=== PATIENT | female | born 1980 | race Two or more races ===

== ENCOUNTER 2018-07-27 15:00 | Emergency (ER) | payer SELFPAY ==
[~2018-07-27] VITALS: Ht 152.4 cm; Wt 90.7 kg
[2018-07-27] MEDS ORDERED: IV NORMAL SALINE 1000ML BAG 1,000 ML IV ONE (16:15)
[2018-07-27 16:33] LABS: BASO # 0.1 x10^3/uL (0.0-0.2); BASO % 1 % (0-3); EOS # 0.2 x10^3/uL (0.0-0.7); EOS % 1 % (0-3); HEMATOCRIT 42.9 % (36.0-47.0); HEMOGLOBIN 15.5 g/dL (12.0-15.5); LYMPH # 2.6 x10^3/uL (1.0-4.8); LYMPH % 20 % (24-48); MEAN CORPUSCULAR HEMOGLOBIN 32 pg (25-35); MEAN CORPUSCULAR HGB CONC 36 g/dL (31-37); MEAN CORPUSCULAR VOLUME 88 fL (79-100); MONO % 8 % (0-9); NEUT # 9.1 x10^3uL (1.8-7.7); NEUT % 70 % (31-73); PLATELET COUNT 347 x10^3/uL (140-400); RED BLOOD COUNT 4.87 x10^6/uL (3.50-5.40); RED CELL DISTRIBUTION WIDTH 13.3 % (11.5-14.5)
[2018-07-27 16:43] LABS: CALCIUM 9.7 mg/dL (8.5-10.1); CREATININE 0.7 mg/dL (0.6-1.0); GFR 92.7; POTASSIUM 3.6 mmol/L (3.5-5.1)
[2018-07-27] MEDS ORDERED: fentaNYL PF VIAL 100 MCG/2 ML VIAL IV ONE (16:45)
[2018-07-27] MEDS ORDERED: FAMOTIDINE 20 MG/2 ML VIAL IVP ONE (16:45)
[2018-07-27] MEDS ORDERED: IOHEXOL 300 MG/ML 100ML VIAL. IV ONE (16:45)
[2018-07-27] MEDS ORDERED: ONDANSETRON PF 4 MG/2 ML VIAL. IV ONE (16:45)
[2018-07-27] MEDS ORDERED: LIDO:MAALOX 1:1 20 ML SINGLE DOSE. SWSW ONE (16:45)
[2018-07-27] MEDS ORDERED: CONTRAST GIVEN. MC PRN (16:45)
[2018-07-27 16:49] LABS: ALBUMIN 3.9 g/dL (3.4-5.0); ALBUMIN/GLOBULIN RATIO 0.8 (1.0-1.7); TOTAL BILIRUBIN 0.4 mg/dL (0.2-1.0); TOTAL PROTEIN 8.8 g/dL (6.4-8.2)
[2018-07-27 17:14] LABS: BILIRUBIN,URINE NEGATIVE (NEG); CLARITY,URINE CLEAR; COLOR,URINE YELLOW; NITRITE,URINE NEGATIVE (NEG); PROTEIN,URINE NEGATIVE (NEG-TRACE); UROBILINOGEN,URINE 0.2 mg/dL (0.2 mg/dL)
[2018-07-27 17:24] LABS: BACTERIA,URINE 0 /HPF (0-FEW); SQUAMOUS EPITHELIAL CELL,UR OCC /LPF
[2018-07-27 17:30] LABS: AMPHETAMINE/METHAMPHETAMINE NEG (NEG); BARBITURATES NEG (NEG); BENZODIAZEPINES NEG (NEG); CANNABINOIDS NEG (NEG); COCAINE NEG (NEG); METHADONE NEG (NEG); OPIATES NEG (NEG); PHENCYCLIDINE NEG (NEG)
--- NOTE | 2018-07-27 18:45 | RAD ---
PQRS Compliance statement: One or more of the following individualized dose reduction techniques were utilized for this examination: 1. Automated exposure control. 2. Adjustment of the mA and/or kV according to patient size. 3. Use of iterative reconstruction technique. Indication:bilateral abd pain, with nausea and vomiting
Omni 300 75ml, no priors TECHNIQUE: CT abdomen and pelvis with IV contrast with multiplanar reformats. COMPARISON: None FINDINGS: Motion artifact is seen in the abdomen limiting optimal evaluation. Heart is normal in size. No pericardial or pleural effusion. Clear lung bases. Diffuse hepatic steatosis. No focal hepatic lesion. Gallstones noted. Mild gallbladder wall thickening seen. No pericholecystic fluid. Spleen, pancreas, adrenals and kidneys are within normal limits. No enlarged retroperitoneal or pelvic adenopathy. No free pelvic fluid or ascites. No bowel obstruction. Normal appendix. Anteverted uterus. Urinary bladder demonstrates circumferential wall thickening without radiopaque stones. No pneumoperitoneum. No suspicious bony lesion. 2.8 x 3.2 cm low attenuating lesion is seen in the left ovary most likely a simple cyst. IMPRESSION: Exam slightly limited due to motion artifact in the abdomen. 1. Cholelithiasis with mild gallbladder wall thickening. Clinically correlate with signs and symptoms of acute cholecystitis. 2. No nephrolithiasis or hydronephrosis. 3. Normal appendix. Mild hepatic steatosis. Electronically signed by: Jeff Roblero DO (07/27/2018 6:40 PM) [facility]
[2018-07-27] MEDS ORDERED: HYDR-3164 PO (19:32)
[2018-07-27] MEDS ORDERED: ONDA4TAB7 PO (19:32)
[2018-07-27] MEDS ORDERED: CIPR500T94 PO (19:32)
--- NOTE | 2018-07-27 19:33 | PHYS DOC ---
Past Medical History Past Medical History: No Pertinent History Past Surgical History: No Surgical History Alcohol Use: None Drug Use: None Adult General Chief Complaint Chief Complaint: ABDOMINAL PAIN HPI HPI Patient is a 38 year old Georgian-speaking female with no significant medical history who presents today complaining of 10 out of 10 bilateral flank pain and generalized abdominal pain with nausea vomiting for 2 days. Patient denies any fever. Denies any diarrhea. Denies any urgency frequency dysuria. She states she 's had similar symptoms a while back and the symptoms resolved on their own. She states she was seen at [facility] and they sent her to the ED to be evaluated. Interpretation provided by who is fluent in both Uzbek and Georgian. Review of Systems Review of Systems Constitutional: Denies fever or chills [] Eyes: Denies change in visual acuity, redness, or eye pain [] HENT: Denies nasal congestion or sore throat [] Respiratory: Denies cough or shortness of breath [] Cardiovascular: No additional information not addressed in HPI [] GI: Reports generalized abdominal pain, nausea vomiting, denies bloody stools or diarrhea [] : Reports bilateral flank pain. Denies dysuria or hematuria [] Musculoskeletal: Denies back pain or joint pain [] Integument: Denies rash or skin lesions [] Neurologic: Denies headache, focal weakness or sensory changes [] All other systems were reviewed and found to be within normal limits, except as documented in this note. Current Medications Current Medications Current Medications Medications (Trade) Dose Ordered Sig/Brian Start Time Stop Time Status Last Admin Dose Admin Famotidine (Pepcid Vial) 20 mg 1X ONCE 07/27/18 16:45 07/27/18 16:46 DC 07/27/18 16:52 20 MG Fentanyl Citrate (Fentanyl 2ml Vial) 50 mcg 1X ONCE 07/27/18 16:45 07/27/18 16:46 DC 07/27/18 16:52 50 MCG Info (CONTRAST GIVEN -- Rx MONITORING) 1 each PRN DAILY PRN 07/27/18 16:45 07/29/18 16:44 Iohexol (Omnipaque 300 Mg/ml) 75 ml 1X ONCE 07/27/18 16:45 07/27/18 16:46 DC Multi-Ingredient Mouthwash/Gargle (Gi Cocktail) 20 ml 1X ONCE 07/27/18 16:45 07/27/18 16:46 DC 07/27/18 16:52 20 ML Ondansetron HCl (Zofran) 4 mg 1X ONCE 07/27/18 16:45 07/27/18 16:46 DC 07/27/18 16:52 4 MG Sodium Chloride 1,000 ml @ 1,000 mls/hr 1X ONCE 07/27/18 16:15 07/27/18 17:14 DC 07/27/18 16:15 1,000 MLS/HR Allergies Allergies Allergies Coded Allergies Type Severity Reaction Last Updated Verified No Known Drug Allergies 07/27/18 No Physical Exam Physical Exam Constitutional: Well developed, well nourished, no acute distress, non-toxic appearance. [] HENT: Normocephalic, atraumatic, bilateral external ears normal, oropharynx moist, no oral exudates, nose normal. [] Eyes: PERRLA, EOMI, conjunctiva normal, no discharge. [] Neck: Normal range of motion, no tenderness, supple, no stridor. [] Cardiovascular:Heart rate regular rhythm, no murmur [] Lungs & Thorax: Bilateral breath sounds clear to auscultation [] Abdomen: Rounded abdomen. Bowel sounds normal, soft, diffuse tenderness throughout the abdomen, no point tenderness to the right upper quadrant or right lower quadrant, negative psoas sign, negative obturator sign, negative Elena sign, negative Rovsing sign, no masses, no pulsatile masses. [] Skin: Warm, dry, no erythema, no rash. [] Back: No tenderness, no CVA tenderness. [] Extremities: No tenderness, no cyanosis, no clubbing, ROM intact, no edema. [] Neurologic: Alert and oriented X 3, normal motor function, normal sensory function, no focal deficits noted. [] Psychologic: Affect normal, judgement normal, mood normal. [] Current Patient Data Vital Signs Vital Signs Date Time Temp Pulse Resp B/P (MAP) Pulse Ox O2 Delivery O2 Flow Rate FiO2 07/27/18 16:52 18 99 Room Air 07/27/18 16:10 97.6 88 175/93 (120) 97.6 Lab Values Laboratory Tests Test 07/27/18 16:11 07/27/18 16:20 07/27/18 16:59 POC Urine HCG, Qualitative Hcg negative (Negative) White Blood Count 13.0 x10^3/uL (4.0-11.0) H Red Blood Count 4.87 x10^6/uL (3.50-5.40) Hemoglobin 15.5 g/dL (12.0-15.5) Hematocrit 42.9 % (36.0-47.0) Mean Corpuscular Volume 88 fL (79-100) Mean Corpuscular Hemoglobin 32 pg (25-35) Mean Corpuscular Hemoglobin Concent 36 g/dL (31-37) Red Cell Distribution Width 13.3 % (11.5-14.5) Platelet Count 347 x10^3/uL (140-400) Neutrophils (%) (Auto) 70 % (31-73) Lymphocytes (%) (Auto) 20 % (24-48) L Monocytes (%) (Auto) 8 % (0-9) Eosinophils (%) (Auto) 1 % (0-3) Basophils (%) (Auto) 1 % (0-3) Neutrophils # (Auto) 9.1 x10^3uL (1.8-7.7) H Lymphocytes # (Auto) 2.6 x10^3/uL (1.0-4.8) Monocytes # (Auto) 1.0 x10^3/uL (0.0-1.1) Eosinophils # (Auto) 0.2 x10^3/uL (0.0-0.7) Basophils # (Auto) 0.1 x10^3/uL (0.0-0.2) Sodium Level 139 mmol/L (136-145) Potassium Level 3.6 mmol/L (3.5-5.1) Chloride Level 99 mmol/L (98-107) Carbon Dioxide Level 28 mmol/L (21-32) Anion Gap 12 (6-14) Blood Urea Nitrogen 6 mg/dL (7-20) L Creatinine 0.7 mg/dL (0.6-1.0) Estimated GFR (Cockcroft-Gault) 92.7 BUN/Creatinine Ratio 9 (6-20) Glucose Level 115 mg/dL (70-99) H Calcium Level 9.7 mg/dL (8.5-10.1) Total Bilirubin 0.4 mg/dL (0.2-1.0) Aspartate Amino Transferase (AST) 27 U/L (15-37) Alanine Aminotransferase (ALT) 47 U/L (14-59) Alkaline Phosphatase 122 U/L (46-116) H Total Protein 8.8 g/dL (6.4-8.2) H Albumin 3.9 g/dL (3.4-5.0) Albumin/Globulin Ratio 0.8 (1.0-1.7) L Lipase 98 U/L (73-393) Ethyl Alcohol Level < 10 mg/dL (0-10) Urine Color Yellow Urine Clarity Clear Urine pH 7.0 Urine Specific [place] <=1.005 Urine Protein Negative mg/dL (NEG-TRACE) Urine Glucose (UA) Negative mg/dL (NEG) Urine Ketones (Stick) Negative mg/dL (NEG) Urine Blood Moderate (NEG) Urine Nitrite Negative (NEG) Urine Bilirubin Negative (NEG) Urine Urobilinogen Dipstick 0.2 mg/dL (0.2 mg/dL) Urine Leukocyte Esterase Negative (NEG) Urine RBC 3-5 /HPF (0-2) Urine WBC 1-4 /HPF (0-4) Urine Squamous Epithelial Cells Occ /LPF Urine Bacteria 0 /HPF (0-FEW) Urine Opiates Screen Neg (NEG) Urine Methadone Screen Neg (NEG) Urine Barbiturates Neg (NEG) Urine Phencyclidine Screen Neg (NEG) Urine Amphetamine/Methamphetamine Neg (NEG) Urine Benzodiazepines Screen Neg (NEG) Urine Cocaine Screen Neg (NEG) Urine Cannabinoids Screen Neg (NEG) Urine Ethyl Alcohol Neg (NEG) Laboratory Tests 07/27/18 16:20 Laboratory Tests 07/27/18 16:20 EKG EKG [] Radiology/Procedures Radiology/Procedures []PROCEDURE: CT ABD PELV W/ IV CONTRST ONLY PQRS Compliance statement: One or more of the following individualized dose reduction techniques were utilized for this examination: 1. Automated exposure control. 2. Adjustment of the mA and/or kV according to patient size. 3. Use of iterative reconstruction technique. Indication:bilateral abd pain, with nausea and vomiting
Omni 300 75ml, no priors TECHNIQUE: CT abdomen and pelvis with IV contrast with multiplanar reformats. COMPARISON: None FINDINGS: Motion artifact is seen in the abdomen limiting optimal evaluation. Heart is normal in size. No pericardial or pleural effusion. Clear lung bases. Diffuse hepatic steatosis. No focal hepatic lesion. Gallstones noted. Mild gallbladder wall thickening seen. No pericholecystic fluid. Spleen, pancreas, adrenals and kidneys are within normal limits. No enlarged retroperitoneal or pelvic adenopathy. No free pelvic fluid or ascites. No bowel obstruction. Normal appendix. Anteverted uterus. Urinary bladder demonstrates circumferential wall thickening without radiopaque stones. No pneumoperitoneum. No suspicious bony lesion. 2.8 x 3.2 cm low attenuating lesion is seen in the left ovary most likely a simple cyst. IMPRESSION: Exam slightly limited due to motion artifact in the abdomen. 1. Cholelithiasis with mild gallbladder wall thickening. Clinically correlate with signs and symptoms of acute cholecystitis. 2. No nephrolithiasis or hydronephrosis. 3. Normal appendix. Mild hepatic steatosis. Electronically signed by: Jeff Roblero DO (07/27/2018 6:40 PM) [facility] DICTATED and SIGNED BY: EJFF ROBLERO DO DATE: 07/27/18 183 Course & Med Decision Making Course & Med Decision Making Pertinent Labs and Imaging studies reviewed. (See chart for details) This is a 38-year-old female patient presented to the ED today with bilateral flank pain, generalized abdominal pain, nausea vomiting for 2 days. Negative urine hCG, urine analysis is negative for infection, CBC with a WBC of 13.0, CMP with normal AST, normal AST, and care 122. CT of the abdomen and pelvic-Cholelithiasis with mild gallbladder wall thickening. Clinically correlate with signs and symptoms of acute cholecystitis. No nephrolithiasis or hydronephrosis. Normal appendix. Mild hepatic steatosis. Patient was offered admission to the hospital to be seen by general surgeon. She requested follow-up as an outpatient. She states her pain is currently resolved. She was given the general surgeons contact number, she'll follow-up on Monday. Discharge her with hydrocodone and Cipro. Follow-up with the general surgeon on Monday. Instructed to return to the ED at any point symptoms worsen. Dragon Disclaimer Dragon Disclaimer This electronic medical record was generated, in whole or in part, using a voice recognition dictation system. Departure Departure Impression: Primary Impression: Cholelithiasis Disposition: HOME, SELF-CARE Condition: STABLE Referrals: NO PCP (PCP) SRAVAN MCCARTHY MD call his office on Monday and follow up Patient Instructions: Cholelithiasis, [id number] Additional Instructions: You were evaluated in the emergency room, you have chololithiasis. We recommended admission, you decided you will follow-up with the general surgeon on Monday. We provided do the contact number, ensure you follow-up on Monday. Come back to the ED at any point symptoms worsen. Scripts Ciprofloxacin Hcl (CIPRO) 500 Mg Tablet 1 TAB PO BID, #14 TAB Prov: BRAD CODY [employer] SPECIALIST 07/27/18 Ondansetron Hcl (ZOFRAN) 4 Mg Tablet 1 TAB PO Q6HRS, #20 TAB Prov: BRAD CODY [employer] SPECIALIST 07/27/18 Hydrocodone/Apap 5-325 (NORCO 5-325 TABLET) 1 Each Tablet 1 TAB PO Q6HRS, #20 TAB Prov: BRAD CODY [employer] SPECIALIST 07/27/18 Problem Qualifiers Primary Impression: Cholelithiasis Cholelithiasis location: gallbladder Cholecystitis presence: without cholecystitis Biliary obstruction: without biliary obstruction Qualified Codes: K80.20 - Calculus of gallbladder without cholecystitis without obstruction BRAD CODY S[employer] QUAL[employer] SPECIALIST Jul 27, 2018 19:33
[2018-07-27 20:08] VITALS: BP 172/73
== END 2018-07-27 20:07 | disposition home or self-care (01) ==
LOC: ER 15:00
DX: K80.20 Calculus of gallbladder without cholecystitis without obstruction (principal); R11.2 Nausea with vomiting, unspecified
CPT/HCPCS: 36415; 74177; 80053; 80307; 81001; 81025; 83690; 85025; 96361; 96374; 96375; 99284; G0480; J2405; J3010; J3490; J7030